=== PATIENT | female | born 1985 | race Caucasian/White ===

== ENCOUNTER 2018-05-03 09:05 | Emergency (ER) | payer OTHER ==
[2018-05-03] MEDS ORDERED: Lactated Ringers 1,000 ML IV ONE (09:17)
[2018-05-03] MEDS ORDERED: Sodium Chloride 0.9% 10 ML Syringe FLUSH PRN (09:17)
[2018-05-03] MEDS ORDERED: Ondansetron 4 MG/2 ML SDV IVPUSH ONE (09:17)
[2018-05-03] MEDS ORDERED: Pantoprazole 40 MG Vial IVPUSH ONE (09:17)
[2018-05-03] MEDS ORDERED: Famotidine 20 MG/2 ML SDV IVPUSH ONE (09:17)
--- NOTE | 2018-05-03 09:17 | EDM.PDOC ---
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 Denies: Old Records (No [facility] records available) History Limitations: Reports: No Limitations - History of Present Illness INITIAL COMMENTS - FREE TEXT/NARRATIVE: The patient was brought to the emergency room via private automobile by her for evaluation of 810 sharp pelvic pain and cramping with symptoms starting with onset of her menses at 6 AM this morning. The patient did have some mild nausea, diaphoresis, and dizziness, however she denies any colic with her pain constant in nature. She did apparently have some mild to moderate vaginal spotting and bleeding prior to arrival however has not been having any soaked pads or clots to this point. She denies any current UTI symptoms, gross hematuria, etc. and does not have a history of urolithiasis. Note previous history of irregular menses secondary to her polycystic ovary syndrome with mostly normal menses about one month ago. No recent history of other abdominal pain, heartburn, diarrhea, melena, gross hematochezia, or any food intolerance, including fatty foods, etc. with normal bowel movement at 8 AM this morning. The patient denies any chest pain/pressure, heart flutter, orthostasis, orthopnea, paresthesias, recent decreased exercise tolerance, or any other anginal-type symptoms. The patient also denies any recent fever, cough, wheezing , dyspnea, etc.. Onset: Today, Sudden Onset Date: 05/03/18 Onset Time: 06:00 Duration: Constant, Getting Worse Location: Reports: Pelvis. Denies: Head, Face, Neck, Chest, Abdomen, Back, Upper Extremity, Left, Upper Extremity, Right, Radiates to Quality: Reports: Same as Previous Episode, Sharp Severity: Severe Improves with: Reports: None Worsens with: Reports: None Context: Reports: Other (As above) Associated Symptoms: Reports: Diaphoresis, Nausea/Vomiting (No emesis). Denies : Confusion, Chest Pain, Cough, Fever/Chills, Headaches, Loss of Appetite, Malaise, Rash, Seizure, Shortness of Breath, Syncope, Weakness Treatments SUPPORT ASSISTANT: Reports: NSAIDS (1000 mg at about 8:30 a.m. this morning) Lower Pelvic Pain Score (Numeric/FACES): 8 - Related Data Allergies Allergy/AdvReac Type Severity Reaction Status Date / Time No Known Drug Allergies Allergy Other Verified 05/03/18 09:09 Home Meds: Home Meds Magnesium Oxide 400 mg PO DAILY #30 tab 05/03/18 [Rx] Past Medical History HEENT History: Reports: None. Denies: Allergic Rhinitis, Glaucoma, Hard of Hearing, Impaired Vision, Macular Degeneration, Retinal Detachment Cardiovascular History: Reports: High Cholesterol, Other (See Below). Denies: Afib, Aneurysm, Arrhythmia, Blood Clots/VTE/DVT, CAD, Cardiomyopathy, Heart Murmur, Hypertension, DE, PVD, Syncope Other Cardiovascular History: Hyperlipidemia not currently under therapy Respiratory History: Reports: None. Denies: Asthma, COPD, Intubation, Previous , PE, Pneumothorax Gastrointestinal History: Reports: None. Denies: Celiac Disease, Cholelithiasis , Chronic Constipation, Chronic Diarrhea, Colon Polyp, Fecal Incontinence, Gastritis, GERD, GI Bleed, Hepatitis, Inflammatory Bowel Disease, Irritable Bowel Syndrome, Pancreatitis, PUD Genitourinary History: Reports: None. Denies: Acute Renal Failure, Chronic Renal Insuffiency, Renal Calculus, STD, Urinary Incontinence, UTI, Recurrent LIGHTHOUSE KEEPER History: Reports: Polycystic Ovaries, , Spontaneous : 1 Para: 0 LMP (Approximate): Other (See Below) Other OB/BYN History: LMP about one month ago with previous history of irregular menses secondary to polycystic ovarian syndrome. SAB at 7 weeks gestation with no procedures required. Musculoskeletal History: Reports: Fracture, Other (See Below). Denies: Arthritis, Back Pain, Chronic, Gout, Neck Pain, Chronic, Osteoarthritis, RA, SLE Other Musculoskeletal History: Bilateral wrist fractures at age 7 secondary to falling off a swing with no procedures required. Neurological History: Reports: None. Denies: Cerebral Aneurysms, Concussion, CVA, Headaches, Chronic, Head Trauma, Migraines, MS, Neuropathy, Peripheral, Parkinson's, Seizure, TIA Psychiatric History: Reports: None. Denies: Abuse, Victim of, ADD, ADHD, Addiction, Anxiety, Depression, Psych Hospitalization(s), PTSD, Suicide Attempt , Suicidal Ideation Endocrine/Metabolic History: Reports: Obesity/BMI 30+. Denies: Diabetes, Gestational, Diabetes, Type I, Diabetes, Type II, Diabetes Mellitus, Type 3c, Hypothyroidism, IDDM Hematologic History: Reports: None. Denies: Anemia, Blood Transfusion(s), Iron Deficiency Immunologic History: Reports: None. Denies: AIDS, HIV, SLE Oncologic (Cancer) History: Reports: None. Denies: Basal Cell Carcinoma, Cervix , Hodgkin's Lymphoma, Leukemia, Lymphoma, Malignant Melanoma, Non-Hodgkin's Lymphoma, Ovarian, Squamous Cell Carcinoma Dermatologic History: Reports: None. Denies: Eczema, Psoriasis - Infectious Disease History Infectious Disease History: Reports: Chicken Pox. Denies: C-Difficile, Measles , Meningitis, Mononucleosis, MRSA, Mumps, Rheumatic Fever, RSV, Rubella, Shingles, TB, VRE - Past Surgical History Head Surgeries/Procedures: Reports: None HEENT Surgical History: Reports: Adenoidectomy, Oral Surgery, Polypectomy, Other (See Below). Denies: Eye Surgery, Myringotomy w Tube(s), Naso-Sinus Surgery Other HEENT Surgeries/Procedures: Right-sided TMJ repair at age 21. Tonsillectomy and adenoidectomy at age 9. [place] teeth extraction 4 at age 17. Cardiovascular Surgical History: Reports: None. Denies: Varicose Respiratory Surgical History: Reports: None. Denies: Thoracentesis GI Surgical History: Reports: None. Denies: Appendectomy, Colonoscopy, EGD, Hernia, Abdominal, Hernia, Inguinal, Hernia Repair/Other Female Surgical History: Reports: Other (See Below). Denies: Breast Biopsy, D&C, Dilitation & Evacuation, Hysterectomy, Lithotripsy/ESWL, Oophorectomy, Salpingo-Oophorectomy, Tubal Ligation Other Female Surgeries/Procedures: Failed in vitro fertilization attempt in 2016. Endocrine Surgical History: Reports: None. Denies: Thyroid Biopsy Neurological Surgical History: Reports: None. Denies: C-Spine, Discectomy, Laminectomy, Lumbar Spine, Scoliosis, Spinal Fusion, Thoracic Spine, Vertebroplasty Musculoskeletal Surgical History: Reports: None. Denies: Amputation, Arthroscopic Procedure, Carpal Tunnel, Ganglion Cyst, Joint Replacement, ORIF, Shoulder Surgery Oncologic Surgical History: Reports: None. Denies: Biopsy of Breast Dermatological Surgical History: Reports: Skin Biopsy, Other (See Below) Other Dermatological Surgeries/Procedures: Multiple previous skin biopsies for benign disease. Social & Family History - Tobacco Use Smoking Status *Q: Never Smoker Tobacco Use Within Last Twelve Months: No Used Tobacco, but Quit: No Smoking Cessation Information Provided To Patient: No Second Hand Smoke Exposure: Yes Source of Second Hand Smoke Exposure: smokes Second Hand Smoke Education Provided: Yes - Caffeine Use Caffeine Use: Reports: Coffee (One cup every other day), Soda (1 soda every other week). Denies: Energy Drinks, Tea - Alcohol Use Alcohol Use History: Yes Days Per Week of Alcohol Use: 2 Number of Drinks Per Day: 1 Number of Drinks Per Day Comment: Usually beer. No previous DWIs, problems with alcohol abuse, etc. 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 ED EXAM, GENERAL - Physical Exam Exam: See Below Exam Limited By: No Limitations General Appearance: Alert, WD/WN, No Apparent Distress, Anxious (Mild to moderate) Head: Atraumatic, Normocephalic. No: Facial Swelling, Facial Tenderness, Sinus Tenderness Neck: Normal Inspection, Supple, Non-Tender, Full Range of Motion. No: Lymphadenopathy (L), Lymphadenopathy (R), Thyromegaly Respiratory/Chest: No Respiratory Distress, Lungs Clear, Normal Breath Sounds, No Accessory Muscle Use, Chest Non-Tender. No: Pleural Rub, Retractions Cardiovascular: Normal Peripheral Pulses, Regular Rate, Rhythm, No Edema, No Gallop, No JVD, No Murmur, No Rub. No: Gallop/S3, Gallop/S4, Friction Rub Peripheral Pulses: 2+: Radial (L), Radial (R) GI/Abdominal: Normal Bowel Sounds, Soft, Non-Tender, No Organomegaly, No Distention, No Abnormal Bruit, No Mass, Pelvis Stable, Other (Obese). No: Guarding, Rebound (Female) Exam: Normal External Exam, Normal Bimanual Exam, Vaginal Bleeding ( Mild vaginal spotting with no tissue present and no significant clot formation) . No: Adnexal Mass, Adnexal Tenderness, Cervical Dilatation, Cervical Discharge , Cervical Lesions, Cervix Motion Tenderness, Enlarged Uterus, Products of Conception, Uterine Tenderness, Vaginal Discharge, Vaginal Lesions, Vaginal Tears Rectal (Female) Exam: Normal Exam, Normal Rectal Tone, Heme - Stool. No: Tenderness (No Tyrese space tenderness) Back Exam: Normal Inspection, Full Range of Motion. No: CVA Tenderness (L), CVA Tenderness (R), Muscle Spasm Extremities: Normal Inspection, Normal Range of Motion, Non-Tender, No Pedal Edema, Normal Capillary Refill. No: Andrei's Sign Neurological: Alert, Oriented, CN II-XII Intact, Normal Cognition, Normal Gait, No Motor/Sensory Deficits Psychiatric: Anxious (Mild to moderate) Skin Exam: Warm, Dry, Intact, Normal Color, No Rash, Stud(s) (Left nasal stud). No: Diaphoretic, Ecchymosis, Jaundice, Lymphangitis, Pallor, Petechiae, Wound/ Incision Lymphatic: No Adenopathy Course - Vital Signs Last Recorded V/S: Last Vital Signs Temp 36.4 C 05/03/18 09:10 Pulse 62 05/03/18 09:10 Resp 17 05/03/18 09:10 BP 137/81 05/03/18 09:10 Pulse Ox 98 05/03/18 09:10 Vital Signs - 24 hr 05/03/18 09:10 Temperature [ 36.4 C Oral] Pulse, 62 Peripheral [ Left Pulse Oximetry] Respiratory 17 Rate Blood Pressure 137/81 [Left Upper Arm ] O2 Sat by Pulse 98 Oximetry - Orders/Labs/Meds Orders: Active Orders 24 hr Category Date Time Status Peripheral IV Care [RC] . DIRECTED Care 05/03/18 09:17 Active Nothing Per Oral Diet [DIET] Diet 05/03/18 Breakfast Active CHLAMYDIA AND GONORRHEA BY TMA Routine Lab 05/03/18 10:25 Received CULTURE URINE [RM] Stat Lab 05/03/18 10:25 Received GENITAL CULTURE [MREF] Stat Lab 05/03/18 10:26 Received OCCULT BLOOD DIAGNOSTIC [OP] Routine Lab 05/03/18 10:48 Ordered UA W/MICROSCOPIC [URIN] Stat Lab 05/03/18 10:25 Ordered WET PREP [MYC] Stat Lab 05/03/18 10:26 Ordered Sodium Chloride 0.9% [Saline Flush] Med 05/03/18 09:17 Active 10 ml FLUSH ASDIRECTED PRN Obtain Past Medical Record [OM.PC] Urgent Oth 05/03/18 09:17 Active Peripheral IV Insertion Adult [OM.PC] Stat Oth 05/03/18 09:17 Ordered Resuscitation Status Stat Resus Stat 05/03/18 09:17 Ordered Medication Orders Sodium Chloride (Saline Flush) 10 ml FLUSH ASDIRECTED PRN PRN Reason: Keep Vein Open Last Admin: 05/03/18 10:39 Dose: 10 ml Labs: Laboratory Tests 05/03/18 05/03/18 05/03/18 Range/Units 09:25 09:25 09:25 WBC 10.6 H (4.0-10.2) K/uL RBC 5.05 (3.77-5.09) M/uL Hgb 14.9 (11.7-15.5) g/dL Hct 43.1 (34.0-46.0) % MCV 85.3 (84.0-98.0) fL MCH 29.5 (28.2-33.3) pg MCHC 34.6 (31.7-36.0) g/dL RDW 13.5 (11.2-14.1) % Plt Count 306 (150-350) K/uL Neut % (Auto) 68.8 (45.0-80.0) % Lymph % (Auto) 23.0 (10.0-50.0) % [place] % (Auto) 6.6 (2.0-14.0) % Eos % (Auto) 1.4 (0.0-5.0) % Baso % (Auto) 0.2 (0.0-2.0) % Neut # (Auto) 7.31 H (1.40-7.00) K/uL Lymph # (Auto) 2.44 (0.50-3.50) K/uL Henderson # (Auto) 0.70 (0.00-1.00) K/uL Eos # (Auto) 0.15 (0.00-0.50) K/uL Baso # (Auto) 0.02 (0.00-0.20) K/uL PT 10.3 (9.8-11.7) SEC INR 1.0 APTT 24.3 (22.1-29.8) SEC Sodium (136-145) mmol/L Potassium (3.5-5.1) mmol/L Chloride (98-107) mmol/L Carbon Dioxide (21.0-32.0) mmol/L BUN (7-18) mg/dL Creatinine (0.51-1.17) mg/dL Est Cr Clr Drug Dosing Estimated GFR (MDRD) mL/min Glucose (74-106) mg/dL Lactic Acid (0.4-2.0) mmol/L Uric Acid (2.6-7.2) mg/dL Calcium (8.5-10.1) mg/dL Magnesium (1.8-2.4) mg/dL Total Bilirubin (0.2-1.0) mg/dL AST (15-37) U/L ALT (12-78) U/L Alkaline Phosphatase (46-116) IU/L Total Protein (6.4-8.2) g/dL Albumin (3.4-5.0) g/dL Amylase 52 (25-115) U/L Lipase (73-393) U/L HCG, Qual (NEGATIVE) Specimen Type Urine Color Urine Appearance Urine pH (5.0-9.0) Ur Specific [place] (1.005-1.030) Urine Protein (NEGATIVE) mg/dL Urine Glucose (UA) (NEGATIVE) mg/dL Urine Ketones (NEGATIVE) mg/dL Urine Occult Blood (NEGATIVE) Urine Nitrite (NEGATIVE) Urine Bilirubin (NEGATIVE) Urine Urobilinogen (0.2-1.0) E.U./dL Ur Leukocyte Esterase (NEGATIVE) Urine RBC /HPF Urine WBC /HPF Ur Epithelial Cells /LPF Urine Bacteria (NONE TO FEW) /HPF Urine Mucus (NEGATIVE) /LPF 05/03/18 05/03/18 05/03/18 Range/Units 09:25 09:25 09:25 WBC (4.0-10.2) K/uL RBC (3.77-5.09) M/uL Hgb (11.7-15.5) g/dL Hct (34.0-46.0) % MCV (84.0-98.0) fL MCH (28.2-33.3) pg MCHC (31.7-36.0) g/dL RDW (11.2-14.1) % Plt Count (150-350) K/uL Neut % (Auto) (45.0-80.0) % Lymph % (Auto) (10.0-50.0) % Henderson % (Auto) (2.0-14.0) % Eos % (Auto) (0.0-5.0) % Baso % (Auto) (0.0-2.0) % Neut # (Auto) (1.40-7.00) K/uL Lymph # (Auto) (0.50-3.50) K/uL Henderson # (Auto) (0.00-1.00) K/uL Eos # (Auto) (0.00-0.50) K/uL Baso # (Auto) (0.00-0.20) K/uL PT (9.8-11.7) SEC INR APTT (22.1-29.8) SEC Sodium 139 (136-145) mmol/L Potassium 3.9 (3.5-5.1) mmol/L Chloride 104 (98-107) mmol/L Carbon Dioxide 24.4 (21.0-32.0) mmol/L BUN 12 (7-18) mg/dL Creatinine 0.89 (0.51-1.17) mg/dL Est Cr Clr Drug Dosing TNP Estimated GFR (MDRD) > 60 mL/min Glucose 114 H (74-106) mg/dL Lactic Acid 1.4 (0.4-2.0) mmol/L Uric Acid 5.0 (2.6-7.2) mg/dL Calcium 9.0 (8.5-10.1) mg/dL Magnesium 1.6 L (1.8-2.4) mg/dL Total Bilirubin 0.3 (0.2-1.0) mg/dL AST 20 (15-37) U/L ALT 34 (12-78) U/L Alkaline Phosphatase 63 (46-116) IU/L Total Protein 7.9 (6.4-8.2) g/dL Albumin 3.9 (3.4-5.0) g/dL Amylase (25-115) U/L Lipase 158 (73-393) U/L HCG, Qual Negative (NEGATIVE) Specimen Type Urine Color Urine Appearance Urine pH (5.0-9.0) Ur Specific [place] (1.005-1.030) Urine Protein (NEGATIVE) mg/dL Urine Glucose (UA) (NEGATIVE) mg/dL Urine Ketones (NEGATIVE) mg/dL Urine Occult Blood (NEGATIVE) Urine Nitrite (NEGATIVE) Urine Bilirubin (NEGATIVE) Urine Urobilinogen (0.2-1.0) E.U./dL Ur Leukocyte Esterase (NEGATIVE) Urine RBC /HPF Urine WBC /HPF Ur Epithelial Cells /LPF Urine Bacteria (NONE TO FEW) /HPF Urine Mucus (NEGATIVE) /LPF 05/03/18 Range/Units 10:25 WBC (4.0-10.2) K/uL RBC (3.77-5.09) M/uL Hgb (11.7-15.5) g/dL Hct (34.0-46.0) % MCV (84.0-98.0) fL MCH (28.2-33.3) pg MCHC (31.7-36.0) g/dL RDW (11.2-14.1) % Plt Count (150-350) K/uL Neut % (Auto) (45.0-80.0) % Lymph % (Auto) (10.0-50.0) % [place] % (Auto) (2.0-14.0) % Eos % (Auto) (0.0-5.0) % Baso % (Auto) (0.0-2.0) % Neut # (Auto) (1.40-7.00) K/uL Lymph # (Auto) (0.50-3.50) K/uL [place] # (Auto) (0.00-1.00) K/uL Eos # (Auto) (0.00-0.50) K/uL Baso # (Auto) (0.00-0.20) K/uL PT (9.8-11.7) SEC INR APTT (22.1-29.8) SEC Sodium (136-145) mmol/L Potassium (3.5-5.1) mmol/L Chloride (98-107) mmol/L Carbon Dioxide (21.0-32.0) mmol/L BUN (7-18) mg/dL Creatinine (0.51-1.17) mg/dL Est Cr Clr Drug Dosing Estimated GFR (MDRD) mL/min Glucose (74-106) mg/dL Lactic Acid (0.4-2.0) mmol/L Uric Acid (2.6-7.2) mg/dL Calcium (8.5-10.1) mg/dL Magnesium (1.8-2.4) mg/dL Total Bilirubin (0.2-1.0) mg/dL AST (15-37) U/L ALT (12-78) U/L Alkaline Phosphatase (46-116) IU/L Total Protein (6.4-8.2) g/dL Albumin (3.4-5.0) g/dL Amylase (25-115) U/L Lipase (73-393) U/L HCG, Qual (NEGATIVE) Specimen Type Urinvoid Urine Color Yellow Urine Appearance Clear Urine pH 5.5 (5.0-9.0) Ur Specific [place] >= 1.030 (1.005-1.030) Urine Protein Negative (NEGATIVE) mg/dL Urine Glucose (UA) Negative (NEGATIVE) mg/dL Urine Ketones Negative (NEGATIVE) mg/dL Urine Occult Blood Moderate H (NEGATIVE) Urine Nitrite Negative (NEGATIVE) Urine Bilirubin Negative (NEGATIVE) Urine Urobilinogen 0.2 (0.2-1.0) E.U./dL Ur Leukocyte Esterase Negative (NEGATIVE) Urine RBC 5-10 H /HPF Urine WBC 0-5 /HPF Ur Epithelial Cells Few /LPF Urine Bacteria Few (NONE TO FEW) /HPF Urine Mucus Few H (NEGATIVE) /LPF Urine specimen set up for culture and sensitivity Microbiology 05/03/18 10:48 Stool Occult Blood (TONYA) - Final Stool / Feces NEGATIVE OCCULT BLOOD 05/03/18 10:26 Wet Prep - Final Vagina Wet prep negative. Vaginal specimen collected for culture and sensitivity, GC, and chlamydia Meds: Medications Generic Name Dose Route Start Last Admin Trade Name Freq PRN Reason Stop Dose Admin Sodium Chloride 10 ml 05/03/18 09:17 05/03/18 10:39 Saline Flush FLUSH 10 ml ASDIRECTED PRN Administration Keep Vein Open Discontinued Medications Generic Name Dose Route Start Last Admin Trade Name Freq PRN Reason Stop Dose Admin Famotidine 40 mg 05/03/18 09:17 05/03/18 10:38 Pepcid IVPUSH 05/03/18 09:18 40 mg ONETIME ONE Administration Lactated Ringer's 1,000 mls @ 999 mls/hr 05/03/18 09:17 Ringers, Lactated IV 05/03/18 10:17 .BOLUS ONE Meperidine HCl 50 mg 05/03/18 10:23 05/03/18 10:39 Demerol IM 05/03/18 10:24 50 mg ONETIME ONE Administration Ondansetron HCl 4 mg 05/03/18 09:17 Zofran IVPUSH 05/03/18 09:18 ONETIME ONE Pantoprazole Sodium 40 mg 05/03/18 09:17 05/03/18 10:38 Protonix Iv IVPUSH 05/03/18 09:18 40 mg ONETIME ONE Administration Promethazine HCl 50 mg 05/03/18 10:22 05/03/18 10:54 Phenergan IM 05/03/18 10:23 50 mg ONETIME ONE Administration Departure - Departure Time of Disposition: 11:25 Disposition: Home, Self-Care 01 Condition: Good Clinical Impression: Polycystic ovarian syndrome, Pelvic pain, Tobacco abuse counseling, Hypomagnesemia Hyperlipidemia Qualifiers: Hyperlipidemia type: unspecified Qualified Code(s): E78.5 - Hyperlipidemia, unspecified - Discharge Information Prescriptions: Magnesium Oxide 400 mg PO DAILY #30 tab Instructions: Pelvic Pain, Female, Fat and Cholesterol Restricted Diet, Easy-to -Read, Diet for Polycystic Ovarian Syndrome Referrals: PCP,Unknown [Primary Care Provider] - Forms: ED Department Discharge Additional Instructions: 1. Followup with your regular provider in 7 days as directed for reevaluation and repeat CBC and magnesium level. Bring these discharge instructions with you to that visit. 2. Discuss possible pelvic ultrasound at follow-up visit depending on your symptoms at that time. 3. Sedation precautions with no driving, etc. for 12 hours because of emergency room medications. 4. Tylenol 650 mg by mouth every 4 hours and/or OTC ibuprofen 2-3 tabs by mouth every 6 hours with food as directed./needed. 5. Heating pad and ice packs to pelvic area as needed/discussed 6. Stop all tobacco exposure KELLEY as directed/per provided information and consider contacting Quit [employer]ne, etc.. 7. [place] diet including encouragement of oral fluids such as sports drinks, etc. for 24-48 hours as directed. Advance to low-fat, low-cholesterol, high- fiber diet as tolerated thereafter. 8. NEVER EXCEED THE RECOMMENDED DOSE OF MEDICINES, INCLUDING OTC MEDICINES, ETC. - Problem List & Annotations (1) Pelvic pain SNOMED Code(s): 49351569 Code(s): R10.2 - PELVIC AND PERINEAL PAIN Status: Acute Priority: High Current Visit: No Onset Date: 05/03/18 Annotation/Comment:: Pelvic pain likely secondary to her beginning menses and history of polycystic ovarian syndrome. Various therapeutic options were discussed with the patient, who is requesting that a pelvic ultrasound not be conducted today. Mild leukocytosis with patient afebrile note definite evidence of infection. Continue to observe closely by her regular providers discharge instructions. IV Pepcid and IV Protonix given as GI. Vaginal specimens collected for culture and sensitivity, GC, and chlamydia. Wet prep results as above. prophylaxis with patient not wishing to have IV fluids at this time as initially ordered. IM Demerol and Phenergan given for pain control. Sedation, etc. precautions given. (2) Polycystic ovarian syndrome SNOMED Code(s): 03606118 Code(s): E28.2 - POLYCYSTIC OVARIAN SYNDROME Status: Chronic Priority: Medium Current Visit: No Annotation/Comment:: As above (3) Hypomagnesemia SNOMED Code(s): 483710423 Code(s): E83.42 - HYPOMAGNESEMIA Status: Acute Priority: Medium Current Visit: No Onset Date: 05/03/18 Annotation/Comment:: Initiate magnesium oxide therapy. This may be beneficial for her pelvic cramping. Close follow-up by her regular provider as per discharge instructions (4) Hyperlipidemia SNOMED Code(s): 67696639 Code(s): E78.5 - HYPERLIPIDEMIA, UNSPECIFIED Status: Chronic Priority: Medium Current Visit: No Annotation/Comment:: Not currently under therapy. Low-fat, low-cholesterol diet information provided with weight loss in moderation advisable. Continue to observe closely through her regular provider. Qualifiers: Hyperlipidemia type: unspecified Qualified Code(s): E78.5 - Hyperlipidemia , unspecified (5) Tobacco abuse counseling SNOMED Code(s): 342932796, 739335949, 762075445 Code(s): Z71.6 - TOBACCO ABUSE COUNSELING Status: Chronic Priority: Medium Current Visit: No Annotation/Comment:: was strongly encouraged to stop all tobacco use KELLEY with information provided. - Problem List Review Problem List Initiated/Reviewed/Updated: Yes - My Orders Last 24 Hours: My Active Orders 05/03/18 09:17 Peripheral IV Care [RC] . DIRECTED Sodium Chloride 0.9% [Saline Flush] 10 ml FLUSH ASDIRECTED PRN Obtain Past Medical Record [OM.PC] Urgent Peripheral IV Insertion Adult [OM.PC] Stat Resuscitation Status Stat 05/03/18 10:25 CHLAMYDIA AND GONORRHEA BY TMA Routine CULTURE URINE [RM] Stat UA W/MICROSCOPIC [URIN] Stat 05/03/18 10:26 GENITAL CULTURE [MREF] Stat WET PREP [MYC] Stat 05/03/18 10:48 OCCULT BLOOD DIAGNOSTIC [OP] Routine 05/03/18 Breakfast Nothing Per Oral Diet [DIET] - Assessment/Plan Last 24 Hours: My Active Orders 05/03/18 09:17 Peripheral IV Care [RC] . DIRECTED Sodium Chloride 0.9% [Saline Flush] 10 ml FLUSH ASDIRECTED PRN Obtain Past Medical Record [OM.PC] Urgent Peripheral IV Insertion Adult [OM.PC] Stat Resuscitation Status Stat 05/03/18 10:25 CHLAMYDIA AND GONORRHEA BY TMA Routine CULTURE URINE [RM] Stat UA W/MICROSCOPIC [URIN] Stat 05/03/18 10:26 GENITAL CULTURE [MREF] Stat WET PREP [MYC] Stat 05/03/18 10:48 OCCULT BLOOD DIAGNOSTIC [OP] Routine 05/03/18 Breakfast Nothing Per Oral Diet [DIET] Assessment:: As above Plan: As above. Extensive precautions were given to the patient and her , who are in agreement with the treatment plan. See Patient Instructions for further treatment and plan.
[2018-05-03 09:49] LABS: CHLORIDE,CL 104 mmol/L (98-107); SODIUM,NA 139 mmol/L (136-145)
[2018-05-03] MEDS ORDERED: Promethazine 25 MG/ML SDV IM ONE (10:22)
[2018-05-03] MEDS ORDERED: Meperidine PF 50 MG/ML Syringe IM ONE (10:23)
== END 2018-05-03 11:25 | disposition home or self-care (01) ==
LOC: LL.ED 09:05
DX: E28.2 Polycystic ovarian syndrome (principal); E83.42 Hypomagnesemia; E78.5 Hyperlipidemia, unspecified; E78.00 Pure hypercholesterolemia, unspecified; Z71.6 Tobacco abuse counseling
CPT/HCPCS: 36415; 80053; 81001; 82150; 82272; 83605; 83690; 83735; 84550; 84703; 85025; 85610; 85730; 87070; 87086; 87205; 87210; 87491; 87591; 96372; 96374; 96375; 99284; C9113; J2175; J2550; J7050; S0028